=== PATIENT | male | born 1955 | race Caucasian/White ===

== ENCOUNTER → 2017-11-25 | Outpatient (CLI) | payer MEDICARE, OTHER ==
--- NOTE | 2017-12-10 17:18 | ONC ---
[facility] [address] [place] [address] [address] RADIATION ONCOLOGY NOTE Name: ELIEZER CHU Room: [facility].#: [id number] Admission: 11/25/17 Attend Phys: Asim Navarro MD Discharge: Date of : 59 Report #: [id number] THIS REPORT FOR: //name// CC: Asim Kirby DO [facility] phone is [phone]. REFERRING PHYSICIANS: Robin Kebede M.D.; Alexa Dyson M.D.; Sebastien Diggs M.D.; Filemon Kirby D.O. PRIMARY SITE AND HISTOPATHOLOGY: The patient had a stage JARED base of tongue cancer. He completed chemoradiotherapy and the radiation treatments were completed on 03/11/2015. PROCEDURE: Nasopharyngolaryngoscopy. FINDINGS: On nasopharyngolaryngoscopy via the left nostril after administration of a small amount of 2% viscous lidocaine orally and 2% viscous lidocaine to the left nostril via a cotton swab, there were no visible lesions in the nasopharynx and no visible lesions in the oropharynx. There were no visible lesions involving the base of tongue and there were no visible lesions involving the true vocal cords bilaterally and they were normally mobile bilaterally. There was no evidence of head and neck cancer. Thank you for allowing me to participate in the care of this patient. <ELECTRONICALLY SIGNED> By: Asim Navarro MD 12/10/17 1718 1023 1932Dmarilou Navarro MD /nt
--- NOTE | 2017-12-10 17:28 | ONC ---
[address] [address] RADIATION ONCOLOGY NOTE Name: ELIEZER CHU Room: [facility]#: [id number] Admission: 11/25/17 Attend Phys: Asim Navarro MD Discharge: Date of : 59 Report #: [id number] THIS REPORT FOR: //name// CC: Asim Diggs MD REFERRING PHYSICIANS: 1. Alexa Dyson MD 2. Filemon Kirby DO 3. Robin Kebede MD 4. Sebastien Diggs MD [facility] phone is [phone]. PRIMARY SITE AND HISTOPATHOLOGY: The patient received radiation therapy as part of chemoradiotherapy for a stage JARED base of tongue cancer. The patient completed radiation treatments on 03/11/2015. INTERVAL NOTE: The patient felt like he was eating well. He is eating a regular diet. He eats foods such as hot pockets and salad. He gets PreviDent fluoride treatments from his dentist. MEDICATIONS: Include simvastatin and Advil. He has sometimes taken Xanax as needed. SOCIAL HISTORY: Cigarettes: The patient does not smoke cigarettes. The patient is . REVIEW OF SYSTEMS: RESPIRATORY: The patient's breathing was baseline. He was not short of breath. MUSCULOSKELETAL: He has good range of motion of his upper extremities. PHYSICAL EXAMINATION: VITAL SIGNS: The patient weighed 161.6 pounds on 11/25/2017 and 160.4 pounds on 05/06/2017 and on 11/25/2017 blood pressure was 138/80, pulse 78, respirations 18. LYMPH NODES: The patient had no palpable cervical or supraclavicular lymphadenopathy. HEAD, EYES, EARS, NOSE AND THROAT: Mouth had no suspicious visible lesions or suspicious palpable lesions. On nasopharyngolaryngoscopy, after administration of a small amount of 2% viscous lidocaine orally and 2% viscous lidocaine to the left nostril via a cotton swab; there were no visible lesions in the nasopharynx. There were no visible lesions in the posterior pharynx. The base of tongue had no visible lesions. The true vocal cords were normally mobile bilaterally without any visible lesions. HEART: Had a regular rate and rhythm without murmur. LUNGS: [place] [address] RADIATION ONCOLOGY NOTE Name: ELIEZER CHU Room: [facility]#: [id number] Admission: 11/25/17 Attend Phys: Asim Navarro MD Discharge: Date of : 59 Report #: [id number] LABORATORY DATA: From 11/21/2017, white blood count was 3.5, hemoglobin 13.8, platelets 96,000. BUN was 15, creatinine 0.89. Sodium was 143, potassium 4.3. TSH was elevated at 5.27 and he also had a fine needle biopsy of the thyroid back on 07/08/2017 which revealed benign follicular cells. RADIOLOGIC DATA: the patient had a neck and chest CT on 05/04/2017 which was unremarkable except for the thyroid nodules. They were later biopsied and found to have benign findings. ASSESSMENT AND PLAN: 1. History of head and neck cancer- There is no evidence of head and neck cancer at this time. A requisition was written for a basic metabolic panel and neck CT in June 2018 and the patient was asked to schedule a followup appointment to see me afterwards. 2. Hypothyroidism- The patient was given a requisition for a TSH level in June 2018. The patient was asked to schedule a followup appointment to see me afterwards. The patient's TSH was elevated, so he was started on 25 mcg of levothyroxine. 3. Hyperlipidemia- The patient takes simvastatin and that is managed by his referring physicians. 4. Dental care- The patient indicated that he uses 1.1% dentagel with fluoride trays and that his dentist prescribes the Dentagel for him. Thank you for allowing me to participate in the care of this patient. <ELECTRONICALLY SIGNED> By: Asim Navarro MD 12/10/17 1728 1034 1751Dmarilou Navarro MD /nt
== END | disposition home or self-care (01) ==
LOC: M.RTH 01:53
DX: Z85.810 Personal history of malignant neoplasm of tongue (principal); E03.9 Hypothyroidism, unspecified; E78.5 Hyperlipidemia, unspecified; Z98.890 Other specified postprocedural states; Z79.899 Other long term (current) drug therapy

== ENCOUNTER → 2018-07-07 | Outpatient (CLI) | payer MEDICARE, OTHER | LOC: M.LAB 10:00 → M.CT 10:00 | DX: C14.0 Malignant neoplasm of pharynx, unspecified (principal) ==

== ENCOUNTER → 2018-07-12 | Outpatient (CLI) | payer MEDICARE, OTHER ==
--- NOTE | 2018-07-24 22:00 | ONC ---
[place] [address] RADIATION ONCOLOGY NOTE Name: ELIEZER CHU Room: [facility]..#: [id number] Admission: 07/12/18 Attend Phys: Asim Navarro MD Discharge: Date of : 59 Report #: [id number] THIS REPORT FOR: //name// CC: Asim Kirby DO DATE OF PROCEDURE: 07/12/2018 REFERRING PHYSICIANS: Alexa Dyson MD; Robin Kebede MD; Filemon Kirby DO. [facility] phone is [phone]. PRIMARY SITE AND HISTOPATHOLOGY: The patient had a stage JARED base of tongue cancer. He completed chemoradiotherapy and the radiation treatments were completed on 03/11/2015. PROCEDURE: Nasopharyngolaryngoscopy. FINDINGS: On nasopharyngolaryngoscopy via the left nostril after administration of 2% viscous lidocaine orally and 2% viscous lidocaine to the left nostril via a cotton swab, there were no visible lesions in the nasopharynx and no visible lesions in the oropharynx. There were no visible lesions involving the base of tongue. There were no visible lesions involving the true vocal cords bilaterally and the true vocal cords were normally mobile bilaterally. There is no evidence of head and neck cancer. Thank you for allowing me to participate in the care of this patient. <ELECTRONICALLY SIGNED> By: Asim Navarro MD 07/24/18 2200 1035 2019Asim Navarro MD /nt
--- NOTE | 2018-07-24 22:11 | ONC ---
[place] [address] RADIATION ONCOLOGY NOTE Name: ELIEZER CHU Room: [facility].#: [id number] Admission: 07/12/18 Attend Phys: Asim Navarro MD Discharge: Date of : 59 Report #: [id number] THIS REPORT FOR: //name// CC: Asim Hobbs MD DATE OF SERVICE: 07/12/2018 REFERRING PHYSICIANS: Elana Dyson MD; Filemon Kirby DO; Robin Kebede MD; [facility] phone is [phone]. PRIMARY SITE AND HISTOPATHOLOGY: The patient received radiation therapy as part of chemoradiotherapy for a stage JARED base of tongue cancer. The patient completed radiation treatments on 03/11/2015. INTERVAL NOTE: The patient is eating well. He is eating a regular diet. He eats food such as hot pockets and salad. He gets PreviDent fluoride treatments from his dentist. MEDICATIONS: Include simvastatin, Advil as needed, and nystatin. SOCIAL HISTORY: Cigarettes: The patient does not smoke cigarettes. The patient is . REVIEW OF SYSTEMS: RESPIRATORY: The patient's breathing was baseline. He was not short of breath. MUSCULOSKELETAL: He has good range of motion in his upper extremities. PHYSICAL EXAMINATION: VITAL SIGNS: The patient weighed 161.4 pounds on 07/12/2014. He was 161.4 pounds on 07/12/2018 and 161.6 pounds on 11/25/2017. On 07/12/2018, blood pressure was 140/86, pulse 76, respirations 18, oxygen saturation 100%. LYMPH NODES: The patient had no palpable cervical or supraclavicular lymphadenopathy. HEAD, EYES, EARS, NOSE AND THROAT: Mouth had no suspicious visible lesions or suspicious palpable lesions. On Nasopharyngolaryngoscopy: After administration of a small amount of 2% viscous lidocaine orally and 2% viscous lidocaine to the left nostril using a cotton swab, there were no visible lesions in the nasopharynx. There were no visible lesions in the posterior oropharynx. The base of tongue had no visible lesions. The True vocal cords were normally mobile bilaterally without visible lesions. HEART: Had a regular rate and rhythm without murmur. LUNGS: [place] [address] RADIATION ONCOLOGY NOTE Name: ELIEZER CHU Room: [facility]#: [id number] Admission: 07/12/18 Attend Phys: Asim Navarro MD Discharge: Date of : 59 Report #: [id number] LABORATORY DATA: From 07/04/2018, white blood count 3.2, hemoglobin 14, platelets 75,000. BUN 13, creatinine 1.04. TSH 2.4, T4 6.6. RADIOLOGIC DATA: Neck CT showed no evidence of malignancy or recurrent tumor. ASSESSMENT AND PLAN: 1. History of head and neck cancer- There is no evidence of head and neck cancer at this time. A requisition was written for a basic metabolic panel and TSH in 12/2018 as well as a PET/CT in 12/2018 or 01/2019. The patient was asked to schedule a followup appointment to see me afterwards. 2. Hypothyroidism- The patient was given a refill for 25 mcg levothyroxine per day and had a TSH ordered in about 6 months and he was asked to schedule a follow up with me afterwards. 3. Hyperlipidemia- The patient takes simvastatin and that is managed by his referring physicians. 4. Dental care- The patient is using 1% dental gel with fluoride trays and the dentist gives him the dental gel. Thank you for allowing me to participate in the care of this patient. <ELECTRONICALLY SIGNED> By: Asim Navarro MD 07/24/18 2211 1246 0041Dmarilou Navarro MD /nt
== END ==
LOC: M.RTH 05:21
DX: E03.9 Hypothyroidism, unspecified (principal); E78.5 Hyperlipidemia, unspecified; Z85.828 Personal history of other malignant neoplasm of skin

== ENCOUNTER 2018-10-09 08:37 | Emergency (ER) | payer MEDICARE, OTHER ==
[~2018-10-09] VITALS: Ht 177.8 cm; Wt 73.9 kg
[2018-10-09] MEDS ORDERED: ZOCOR20 MG PO (08:50)
[2018-10-09] MEDS ORDERED: SYNTHROID125 MC1 PO (08:50)
[2018-10-09] MEDS ORDERED: [UNRECOGNIZED DRUG - CODE] PO (08:51)
[2018-10-09] MEDS ORDERED: HYDROCODONE-AP1 EAC6 PO (10:29)
[2018-10-09 10:41] VITALS: BP 178/89
== END 2018-10-09 10:43 | disposition home or self-care (01) ==
LOC: M.ERS 08:37
DX: S20.212A Contusion of left front wall of thorax, initial encounter (principal); S70.12XA Contusion of left thigh, initial encounter; E78.5 Hyperlipidemia, unspecified; E03.9 Hypothyroidism, unspecified; W11.XXXA Fall on and from ladder, initial encounter; Y92.89 Other specified places as the place of occurrence of the external cause; Y93.89 Activity, other specified; Y99.8 Other external cause status

== ENCOUNTER → 2019-02-02 | Outpatient (CLI) | payer MEDICARE, OTHER ==
[~2019-02-02] MED LIST: HYDROCODONE-AP1 EAC6 PO; SYNTHROID125 MC1 PO; ZOCOR20 MG PO; [UNRECOGNIZED DRUG - CODE] PO
--- NOTE | ~2019-02-02 | ONC ---
[place] [address] RADIATION ONCOLOGY NOTE Name: ELIEZER CHU Room: [facility]..#: [id number] Admission: 02/02/19 Attend Phys: Asim Navarro MD Discharge: Date of : 59 Report #: [id number] THIS REPORT FOR: //name// CC: Asim Dyson RADIATION ONCOLOGY FOLLOWUP NOTE REFERRING PHYSICIANS: Alexa Dysno MD; Filemon Greenwood DO; Robin Kebede MD. [facility] phone is [phone]. PRIMARY SITE AND HISTOPATHOLOGY: The patient received radiation therapy as part of radiation therapy/chemotherapy for stage 4A base of tongue cancer. The patient completed radiation treatments on 03/11/2015. INTERVAL NOTE: The patient is eating well. He is eating a regular diet. He eats food such as [employer], salad and he feels like he is swallowing well and he has a good appetite. MEDICATIONS: Include simvastatin and Advil as needed. SOCIAL HISTORY: Cigarettes: The patient does not smoke cigarettes. The patient is . REVIEW OF SYSTEMS: RESPIRATORY: The patient's breathing was baseline. He was not short of breath. MUSCULOSKELETAL: He has good range of motion of his upper extremities. PHYSICAL EXAMINATION: VITAL SIGNS: The patient weighed 167.2 pounds on 02/02/2019, 161.4 pounds on 07/12/2018. On 02/02/2019, blood pressure is 134/92, pulse 80, oxygen saturation 98% on room air, respirations 18. LYMPH NODES: The patient had no palpable cervical or supraclavicular lymphadenopathy. HEAD, EYES, EARS, NOSE AND THROAT: Mouth had no suspicious visible lesions or suspicious palpable lesions. On nasopharyngolaryngoscopy after administration of a small amount of 2% viscous lidocaine orally and 2% viscous lidocaine to left nostril, using a cotton swab, there were no suspicious visible lesions in the nasopharynx and no suspicious visible lesions in the posterior pharynx. The base of tongue had no suspicious visible lesions. True vocal cords were normally mobile bilaterally without visible lesions. HEART: Had a regular rate and rhythm without murmur. LUNGS: Clear to auscultation. LABORATORY DATA: From 01/19/2019, white blood cell count was 3.5; hemoglobin was 14.4; and platelets were 225,000. BUN 17, creatinine 1.05. Sodium was 145, [facility] [address] [place] [address] RADIATION ONCOLOGY NOTE Name: ELIEZER CHU Room: [facility]#: [id number] Admission: 02/02/19 Attend Phys: Asim Navarro MD Discharge: Date of : 59 Report #: [id number] potassium 5.0. TSH was 2.92. RADIOLOGIC DATA: The patient had a PET/CT scan performed on 01/22/2019 at [facility]. There was no PET/CT evidence of recurrent hypermetabolic mass or lymphadenopathy. He did have a persistent small hypermetabolic nodule along the superior segmental bronchus of the left lower lobe, which was not significantly changed in size or since outside PET/CT in December 2014. Findings were considered atypical for pulmonary metastasis and indolent neoplasm such as carcinoid was a consideration and a bronchoscopic biopsy was suggested by the radiology report. ASSESSMENT AND PLAN: 1. History of head and neck cancer. There is no evidence of head and neck cancer at this time. One of his medications are 25 mcg of levothyroxine. The patient was asked to follow up with me in about 2-3 months after he has had a Pulmonology evaluation. 2. Small hypermetabolic nodule in the left lower lobe of the lung. This could be a granuloma versus a small indolent neoplasm such as carcinoid. The patient will be referred to the [facility] [employer] for further evaluation of this area. 3. Hypothyroidism. The patient will be given a refill for 25 mcg of levothyroxine and TSH will be ordered in about 2-3 months and the patient was asked to follow up with me afterwards. 4. Hyperlipidemia. The patient takes simvastatin and that is managed by his referring physicians. 5. Dental care. The patient is using 1% dental gel with fluoride trays and the dentist gives him the dental gel. Thank you for allowing me to participate in the care of this patient. By: [id number] Navarro MD /nt
--- NOTE | ~2019-02-02 | ONC ---
[place] [address] RADIATION ONCOLOGY NOTE Name: ELIEZER CHU Room: [facility]..#: [id number] Admission: 02/02/19 Attend Phys: Asim Navarro MD Discharge: Date of : 59 Report #: [id number] THIS REPORT FOR: //name// CC: Asim Dyson DATE OF SERVICE: 02/02/2019 REFERRING PHYSICIANS: Alexa Dyson MD. and Robin Kebede MD., Dr. Filemon Kirby DO. [facility] phone is [phone]. PRIMARY SITE AND HISTOPATHOLOGY: The patient has stage JARED base of tongue cancer. He completed chemoradiotherapy and radiation treatments were completed on 03/11/2015. PROCEDURE: Nasopharyngolaryngoscopy. FINDINGS: On nasopharyngolaryngoscopy via the left nostril after administration of 2% viscous lidocaine orally and 2% viscous lidocaine to left nostril via cotton swab, there were no visible lesions in the nasopharynx, no visible lesions on the oropharynx and no visible lesions involving the base of tongue. There are no visible lesions along the true vocal cords bilaterally and the true vocal cords were normally mobile bilaterally. There was no evidence of head and neck cancer. Thank you for allowing me to participate in the care of this patient. By: [id number] maya Bosch
== END | disposition home or self-care (01) ==
LOC: M.RTH 01-24 09:30
DX: Z08 Encounter for follow-up examination after completed treatment for malignant neoplasm (principal); Z85.810 Personal history of malignant neoplasm of tongue; E03.9 Hypothyroidism, unspecified; E78.5 Hyperlipidemia, unspecified; Z79.899 Other long term (current) drug therapy; Z79.891 Long term (current) use of opiate analgesic; Z98.890 Other specified postprocedural states

== ENCOUNTER → 2019-05-18 | Outpatient (CLI) | payer MEDICARE, OTHER ==
--- NOTE | ~2019-05-18 | ONC ---
[place] [address] RADIATION ONCOLOGY NOTE Name: ELIEZER CHU Room: [facility]..#: [id number] Admission: 05/18/19 Attend Phys: Asim Navarro MD Discharge: Date of : 59 Report #: [id number] THIS REPORT FOR: //name// CC: Asim Dyson DATE OF SERVICE: 05/18/2019 REFERRING PHYSICIANS: Alexa Dyson MD; Robin Kebede MD; Filemon Kirby DO; and also Dr. Kyle Chung. PRIMARY SITE AND HISTOPATHOLOGY: The patient has stage 4A base of tongue cancer. He completed radiation therapy, chemotherapy. Radiation treatments were completed on 03/11/2015. 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 PROCEDURE: Nasopharyngolaryngoscopy. FINDINGS: On nasopharyngolaryngoscopy via the left nostril after administration of 2% viscous lidocaine orally and 2% viscous lidocaine to left nostril via cotton swab, there were no visible lesions in the nasopharynx. There were no visible lesions in the oropharynx. No visible lesions involving the base of tongue. There were no visible lesions involving the true vocal cords bilaterally and the true vocal cords are normally mobile bilaterally. There was no evidence of head and neck cancer. Thank you for allowing me to participate in the care of this patient. By: 1150 2047MD maya Bosch
--- NOTE | ~2019-05-18 | ONC ---
[place] [address] RADIATION ONCOLOGY NOTE Name: ELIEZER CHU Room: [facility]..#: [id number] Admission: 05/18/19 Attend Phys: Asim Navarro MD Discharge: Date of : 59 Report #: [id number] THIS REPORT FOR: //name// CC: Asim Dyson DATE OF SERVICE: 05/18/2019 REFERRING PHYSICIANS: Dr. Elana Dyson, Dr. Filemon Kirby; Robin Kebede MD, and [facility], phone is [phone]. PRIMARY SITE AND HISTOPATHOLOGY: The patient received radiation therapy as part of radiation therapy and chemotherapy for stage 4A base of tongue cancer. The patient also completed radiation treatments on 03/11/2015. He also was diagnosed with a well-differentiated carcinoid in the chest area and the cancer conference at [facility] on 03/15/2019 felt that it was fine to observe that area since it has remained relatively unchanged over several years. The patient is eating well. He eats a regular diet, eats food such as [employer] and salad. He has a good appetite. He mentioned he had a biopsy of a left lower lobe nodule that ended up being a well-differentiated neuroendocrine tumor, which was a carcinoid which has been relatively stable since at least 2014. Observation with yearly surveillance imaging was suggested from the [facility]. MEDICATIONS: Include simvastatin and Advil. SOCIAL HISTORY: Cigarettes: The patient does not smoke cigarettes. The patient is . REVIEW OF SYSTEMS: RESPIRATORY: The patient's breathing was baseline. He was not short of breath. MUSCULOSKELETAL: He has good range of motion of his upper extremities. PHYSICAL EXAMINATION: VITAL SIGNS: The patient weighed 160.4 pounds on 05/18/2019, 167.2 pounds on 02/02/2019. On 05/18/2019 blood pressure 137/97, pulse 79, respirations 20, and oxygen saturation was 97%. LYMPH NODES: He had no palpable cervical or supraclavicular lymphadenopathy. HEAD, EYES, EARS, NOSE AND THROAT: Mouth had no suspicious visible lesions or suspicious palpable lesions. Nasopharyngolaryngoscopy after administration of a small amount of 2% viscous lidocaine orally and 2% viscous lidocaine to left nostril using a cotton swab. There were no visible lesions on the nasopharynx, no visible lesions in the posterior pharynx. The base of tongue had no visible lesions. True vocal cords are normally mobile bilaterally without any visible lesions. HEART: Had a regular rate [place] [address] RADIATION ONCOLOGY NOTE Name: ELIEZER CHU [id number] Admission: 05/18/19 Attend Phys: Asim Navarro MD Discharge: Date of : 59 Report #: [id number] LUNGS: Clear to auscultation. LABORATORY DATA: TSH was 2.25, which was within normal limits on 05/03/2019 with him taking 25 mcg of levothyroxine per day. ASSESSMENT AND PLAN: 1. History of head and neck cancer. There is no evidence of neck cancer at this time. The patient was asked to schedule a followup appointment to see me in 10/2021. Well differentiated carcinoid has not changed significantly since 2014. The multidisciplinary cancer conference at [facility] thought yearly imaging was sufficient. The patient was asked to schedule a followup appointment to see me afterwards. 2. Hypothyroidism. The patient continues to take 25 mcg of levothyroxine and a TSH was scheduled in 10/2019, he is asked to schedule a followup appointment to see me afterwards. 3. Hyperlipidemia. The patient takes simvastatin that is managed by his referring physicians. 4. Dental care. The patient is using 1% dental gel with fluoride trays and the dentist prescribed him the dental gel. Thank you for allowing me to participate in the care of this patient. By: [id number] Navarro MD /hari
== END ==
LOC: M.RTH 01:53
DX: Z08 Encounter for follow-up examination after completed treatment for malignant neoplasm (principal); E03.9 Hypothyroidism, unspecified; E78.5 Hyperlipidemia, unspecified; Z85.810 Personal history of malignant neoplasm of tongue; Z85.89 Personal history of malignant neoplasm of other organs and systems

== ENCOUNTER → 2019-11-09 | Outpatient (CLI) | payer MEDICARE, OTHER ==
--- NOTE | 2019-11-10 16:44 | ONC ---
[place] [address] RADIATION ONCOLOGY NOTE Name: ELIEZER CHU Room: [facility]#: [id number] Admission: 11/09/19 Attend Phys: Asim Navarro MD Discharge: Date of : 59 Report #: [id number] THIS REPORT FOR: //name// CC: Asim Wood DATE OF PROCEDURE: 11/09/2019 [facility] REFERRING PHYSICIANS: Dr. Elaan Dyson; Robin Kebede MD; Filemon Kirby DO and Dr. Kyle Chung. SUBJECTIVE: The patient had a stage JARED base of tongue cancer and completed radiation therapy and chemotherapy. Radiation treatments were completed on 03/11/2015. The patient also has a well-differentiated neuroendocrine/carcinoid tumor involving the left lower lobe of the lung, which had been stable for years and is being observed. PROCEDURE: Naasopharyngolaryngoscopy. FINDINGS: On nasopharyngolaryngoscopy via the left nostril after administration of 2% viscous lidocaine orally and 2% viscous lidocaine to the left nostril via a cotton swab. There were no visible lesions in the nasopharynx. There were no visible lesions in the oropharynx. There were no visible lesions involving the base of tongue. There were no visible lesions involving the true vocal cords bilaterally and the true vocal cords were normally mobile bilaterally. There was no evidence of head and neck cancer. Thank you for allowing me to participate in the care of this patient. <ELECTRONICALLY SIGNED> By: Asim Navarro MD 11/10/19 1644 1131 [id number] Navarro MD /nt
--- NOTE | 2019-11-10 17:15 | ONC ---
[place] [address] RADIATION ONCOLOGY NOTE Name: ELIEZER CHU Room: [facility]#: [id number] Admission: 11/09/19 Attend Phys: Asim Navarro MD Discharge: Date of : 59 Report #: [id number] THIS REPORT FOR: //name// CC: Asim Wood. DATE OF SERVICE: 11/09/2019 REFERRING PHYSICIANS: Dr. Elana Dyson, Dr. Filemon Kirby, Dr. Robin Kebede, Dr. Kyle Chung, and Dr. Ortiz Wood. [facility] phone is [phone]. PRIMARY SITE AND HISTOPATHOLOGY: The patient received radiation therapy and chemotherapy for a stage JARED base of tongue cancer. The patient completed the radiation treatments on 03/11/2015. He was also diagnosed with a well-differentiated carcinoid tumor involving the lung. He was discussed at tat the cancer conference at the [facility] on 03/23/2019 and they felt it was fine to observe that area since it has remained stable and relatively unchanged over several years. INTERVAL NOTE: The patient felt like he was eating well. He avoids dry meats. He avoids dry breads. He tends to eat foods such as chicken and salad. He said that his blood pressure rises when he goes to the physician's office. He said that his blood pressure is usually lower, elsewhere, about 130/80. MEDICATIONS: Include simvastatin and Advil and 25 mcg of levothyroxine per day. SOCIAL HISTORY: Cigarettes: The patient does not smoke cigarettes. The patient is . REVIEW OF SYSTEMS: RESPIRATORY: The patient's breathing was baseline. He was not short of breath. MUSCULOSKELETAL: He has good range of motion of his upper extremities. PHYSICAL EXAMINATION: VITAL SIGNS: The patient weighed 163.2 pounds on 11/09/2019. He was 160.4 pounds on 05/18/2019. On 11/09/2019, blood pressure was 156/105, pulse 99, oxygen saturation 96%, respirations 20. LYMPH NODES: He had no palpable cervical or supraclavicular lymphadenopathy. HEAD, EYES, EARS, NOSE AND THROAT: Mouth had no suspicious visible lesions or suspicious palpable lesions. On nasopharyngolaryngoscopy after administration of a small amount of 2% viscous lidocaine orally and 2% [place] [address] RADIATION ONCOLOGY NOTE Name: ELIEZER CHU Room: [facility]#: [id number] Admission: 11/09/19 Attend Phys: Asim Navarro MD Discharge: Date of : 59 Report #: [id number] nostril using a cotton swab, there were no visible lesions involving the nasopharynx, no visible lesions in the posterior oropharynx. Base of tongue had no visible lesions. The true vocal cords were normally mobile bilaterally without any visible lesions. HEART: Had a regular rate and rhythm without murmur. LUNGS: Clear to auscultation. LABORATORY DATA: From [facility] on 10/11/2019 revealed that the TSH was 3.19, which was within normal limits with him taking 25 mcg of levothyroxine per day. BUN was 15, creatinine was 0.94, sodium 138, potassium 5.2. White blood cell count 3.8, hemoglobin 14.4, and platelets were 202,000. RADIOLOGIC DATA: The patient had a PET scan on 01/22/2019, which showed no PET/CT evidence of recurrent hypermetabolic mass or lymphadenopathy. He had a persistent small hypermetabolic nodule along the superior segmental bronchus of the left lower lobe, which is the area where he has his low-grade carcinoid. He also had a chest CT scan performed on 03/09/2019 that revealed a stable small nodule that measured 0.6 cm in the superior segment of the left lower lobe that was mildly hypermetabolic on the prior PET/CT and can reflect a low-grade carcinoid tumor. ASSESSMENT AND PLAN: 1. History of head and neck cancer- There is no evidence of head and neck cancer. Lab work and a neck and chest CT were ordered around 02/2020 and the patient was asked to schedule a follow up appointment to see me afterwards. 2. Well differentiated carcinoma of the lung- unchanged significantly since 2014, the multidisciplinary cancer conference at the [facility], thought yearly imaging was sufficient, so lab work and a chest CT were ordered around 02/2020 and the patient was asked to schedule a followup appointment to see me afterwards. 3. Hypothyroidism- The patient was given a refill for 25 mcg of levothyroxine per day since his TSH was within normal limits on his present dose and a TSH was ordered around 02/2020 and the patient was asked to schedule a followup appointment to see me afterwards. 4. Hyperlipidemia- The patient takes simvastatin and that is managed by his referring physicians. 5. Dental care- The patient says that he follows up with the [facility] regularly about twice a year and they gave him fluoride and he uses fluoride trays to apply that fluoride his teeth. [address] [place] [address] RADIATION ONCOLOGY NOTE Name: ELIEZER CHU Room: [facility]#: [id number] Admission: 11/09/19 Attend Phys: Asim Navarro MD Discharge: Date of : 59 Report #: [id number] Thank you for allowing me to participate in the care of this patient. <ELECTRONICALLY SIGNED> By: Asim Navarro MD 11/10/19 1715 1139 [id number] Navarro MD /nt
== END ==
LOC: M.RTH 09:45
DX: Z08 Encounter for follow-up examination after completed treatment for malignant neoplasm (principal); E03.9 Hypothyroidism, unspecified; E78.00 Pure hypercholesterolemia, unspecified; Z85.89 Personal history of malignant neoplasm of other organs and systems; Z85.118 Personal history of other malignant neoplasm of bronchus and lung

== ENCOUNTER → 2020-03-21 | Outpatient (CLI) | payer MEDICARE, OTHER ==
--- NOTE | 2020-03-23 00:04 | ONC ---
[address] [address] RADIATION ONCOLOGY NOTE Name: ELIEZER CHU Room: [facility]#: [id number] Admission: 03/21/20 Attend Phys: Asim Navarro MD Discharge: Date of : 59 Report #: [id number] THIS REPORT FOR: //name// CC: Asim Kebede MD DATE OF PROCEDURE: 03/21/2020 REFERRING PHYSICIANS: Include Dr. Dyson, Dr. Robin Kebede, Dr. Filemon Kirby, Dr. Kyle Chung, Dr. Ortiz Wood. [facility] phone is [phone]. PRIMARY SITE AND HISTOPATHOLOGY: The patient had a stage JARED base of tongue cancer and completed radiation therapy and chemotherapy. Radiation treatments were completed on 03/11/2015. 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 PROCEDURE: Nasopharyngolaryngoscopy. FINDINGS: On nasopharyngolaryngoscopy, via the left nostril after administration of 2% viscous lidocaine orally and 2% viscous lidocaine to the left nostril via cotton swab, there were no visible lesions in the nasopharynx. There were no visible lesions in the oropharynx. There were no visible lesions involving the base of tongue. There were no visible lesions involving the true vocal cords bilaterally and the true vocal cords were normally mobile bilaterally. There was no evidence of head and neck cancer. Thank you for allowing me to participate in the care of this patient. <ELECTRONICALLY SIGNED> By: Asim Navarro MD 03/23/20 0004 [id number] [id number] Navarro MD /nt
--- NOTE | 2020-03-23 00:08 | ONC ---
[place] [address] RADIATION ONCOLOGY NOTE Name: ELIEZER CHU Room: [facility]#: [id number] Admission: 03/21/20 Attend Phys: Asim Navarro MD Discharge: Date of : 59 Report #: [id number] THIS REPORT FOR: //name// CC: Asim Wood DATE OF SERVICE: 03/21/2020 REFERRING PHYSICIANS: Include Alexa Dyson MD., Robin Kebede MD., Filemon Kirby DO, Dr. Kyle Chung and Dr. Ortiz Wood. [facility] phone is [phone]. 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 The patient completed the radiation treatments on 03/11/2015. He was also diagnosed with a well-differentiated carcinoid tumor involving the lung. He was discussed at the Cancer conference at the [facility] on 03/23/2019 and it was felt that area should just be observed since it has remained stable and relatively unchanged over several years. INTERVAL NOTE: The patient felt like he was eating well. He avoids dry meats and dry breads. He tends to eat moist foods such as chicken and salad. He said that his hearse driver will be ordering his chest CT for next year. MEDICATIONS: Include simvastatin and Advil as needed and 25 mcg of levothyroxine per day. SOCIAL HISTORY: Cigarettes: The patient does not smoke cigarettes. The patient is . REVIEW OF SYSTEMS: RESPIRATORY: The patient's breathing was baseline. He was not short of breath. MUSCULOSKELETAL: He had good range of motion of his upper extremities. PHYSICAL EXAMINATION: VITAL SIGNS: The patient weighed 161.4 pounds on 03/21/2020, he was 163.2 pounds on 11/09/2019. On 03/21/2020, blood pressure was 143/91, pulse 73, oxygen saturation 96%, temperature 98.2 degrees Fahrenheit. LYMPH NODES: He had no palpable cervical or supraclavicular lymphadenopathy. HEAD, EYES, EARS, NOSE AND THROAT: Mouth had no suspicious visible lesions or suspicious palpable lesions. On nasopharyngol[place] [address] RADIATION ONCOLOGY NOTE Name: ELIEZER CHU Room: [facility]#: [id number] Admission: 03/21/20 Attend Phys: Asim Navarro MD Discharge: Date of : 59 Report #: [id number] of a small amount of 2% viscous lidocaine orally and 2% viscous lidocaine to the left nostril using a cotton swab, there were no visible lesions involving the nasopharynx and no visible lesions involving the posterior oropharynx. The base of tongue had no visible lesions. The true vocal cords are normally mobile bilaterally without any visible lesions. HEART: Had a regular rate and rhythm without murmur. LUNGS: were clear to auscultation. LABORATORY DATA: From 03/03/2020, his TSH was 1.8. His sodium was 139, potassium 5.1,and the TSH was 1.8, which was within normal limits with him taking 25 mcg of levothyroxine per day. RADIOLOGIC DATA: He had a chest CT on 03/14/2020 which showed a stable biopsy proven left lower lobe carcinoid tumor that measured 0.6 cm. ASSESSMENT AND PLAN: 1. History of head and neck cancer- There is no evidence of head and neck cancer at this time. A TSH was ordered in about 1 year and the patient was asked to schedule a followup appointment to see me afterwards. 2. A stable carcinoma involving the right lung- His hearse driver right now is observing that area and the patient said that he will be ordering a chest CT for next year and he will continue to follow up with his hearse driver. 3. Hypothyroidism- The patient was given a refill for 25 mcg of levothyroxine. His TSH was within normal limits with him taking 25 mcg of levothyroxine per day and a TSH was ordered in 1 year and the patient was asked to follow up with me afterwards. 4. Hyperlipidemia- The patient takes simvastatin and that is managed by his referring physicians. 5. Dental care. The patient follows up regularly with the [facility] and they provide him with fluoride to use with his fluoride trays to apply to his teeth. Thank you for allowing me to participate in the care of this patient. <ELECTRONICALLY SIGNED> By: Asim Navarro MD 03/23/20 0008 [id number] [id number] Navarro MD /nt
== END ==
LOC: M.RTH 03:58
PROVIDERS: ATTEND Radiology Radiation Oncology
DX: Z08 Encounter for follow-up examination after completed treatment for malignant neoplasm (principal); Z85.810 Personal history of malignant neoplasm of tongue; Z85.89 Personal history of malignant neoplasm of other organs and systems

== ENCOUNTER → 2021-09-22 | Outpatient (CLI) | payer MEDICARE, OTHER | LOC: M.LAB 13:10 | PROVIDERS: ATTEND Internal Medicine Gastroenterology | DX: Z18.12 Retained nonmagnetic metal fragments (principal); Z20.822 Contact with and (suspected) exposure to COVID-19 ==